=== PATIENT | male | born 1975 ===

== ENCOUNTER → 2025-09-21 | Outpatient (CLI) | payer OTHER ==
[2025-09-21 18:14] LABS: Anion Gap 4 mmol/L (3-11); Blood Urea Nitrogen 13 mg/dL (8-24); CHOL/HDL RATIO 3.1; CO2, Blood 30 mmol/L (21-32); Calcium, Blood 9.2 mg/dL (8.5-10.1); Chloride, Blood 108 mmol/L (98-108); Cholesterol 223 mg/dL (50-200); Creatinine, Blood 0.86 mg/dL (0.60-1.20); Glucose, Blood 95 mg/dL (70-99); HDL Cholesterol 72 mg/dL (>39); LDL/HDL RATIO 1.8; Low Density Lipoprotein Chol 129 mg/dL (0-110); Potassium, Blood 4.4 mmol/L (3.5-5.5); Sodium, Blood 138 mmol/L (136-145); Triglycerides 112 mg/dL (30-160); Very Low Density Lipoprot Chol 22 mg/dL (6-32)
== END ==
LOC: LAB SHORT 16:23 → LAB 16:23
PROVIDERS: Family Medicine
DX: Z00.00 Encounter for general adult medical examination without abnormal findings (principal); E78.2 Mixed hyperlipidemia
CPT/HCPCS: 80048; 80061